=== PATIENT | female | born 1945 | race Caucasian/White ===

== ENCOUNTER → 2018-07-25 | Outpatient (CLI) | payer MEDICARE, OTHER ==
--- NOTE | 2018-07-25 14:04 | RADIOLOGY REPORT (SQ) ---
EXAM DESCRIPTION: MRI RT UPPER JOINT WITHOUT COMPLETED DATE/TIME: 07/25/2018 12:47 pm REASON FOR STUDY: PAIN IN R SHOULDER M25.511 PAIN IN RIGHT SHOULDER COMPARISON: None. TECHNIQUE: Right shoulder images acquired and stored on PACS. Multiplanar imaging to include fat sen sitive sequences such as T1, water sensitive sequences such as FST2/STIR, cartilage sensitive sequenc es such as FSPD/gradient-echo sequences. LIMITATIONS: None. FINDINGS: BONE MARROW AND CORTEX: No worrisome bone lesions or marrow replacement. No occult fractur es. JOINT OR BURSAL EFFUSION: Small amount of fluid in the subacromial/subdeltoid bursa communicates with the joint space through a full-thickness rotator cuff tear GLENO-HUMERAL ARTICULATION: Right humeral head abuts the undersurface of the acromion through a full- thickness rotator cuff tear. Glenohumeral joint articular cartilage is intact ACROMION AND AC JOINT: Type 1 acromion with bulky acromioclavicular joint hypertrophy narrowing the subacromial space on sagittal image 10 and coronal image 10 ROTATOR CUFF AND INTERVAL: Full-thickness tear throughout the supraspinatus tendon distally, with a b road defects over the humeral head. Right humeral head abuts the undersurface of the acromion. Ther e is proximal retraction of the supraspinatus muscle and tendon was mild fatty atrophy of the suprasp inatus muscle. Diffuse tendinopathy distal infraspinatus tendon. Mild fatty changes spinatus muscle. Subscapularis is intact. No rotator interval tear. No rotator interval thickening to suggest adhesive capsulitis. LABRUM AND BICEPS LABRAL COMPLEX: Intra-articular long head biceps tendinopathy. No labral tear or paralabral cysts. REMAINDER OF LABRUM AND IGHL : No gross tear or paralabral cyst formation. Labral evaluation is less than optimal without joint distention. No thickening of IGHL to suggest adhesive capsulitis. PERIARTICULAR AND ADJACENT SOFT TISSUES: No masses or abnormal nodes. OTHER: No other significant finding. IMPRESSION: Full-thickness tear supraspinatus tendon with proximal retraction and fatty atrophy of t he muscle. TECHNICAL DOCUMENTATION: JOB ID: [id number]- All Rights Reserved Reading location - IP/workstation name: [email or web address]
== END ==
LOC: RAD 11:48
PROVIDERS: ATTEND Orthopaedic Surgery
DX: M25.511 Pain in right shoulder (principal); M75.121 Complete rotator cuff tear or rupture of right shoulder, not specified as traumatic